=== PATIENT | male | born 1995 | race Caucasian/White ===

== ENCOUNTER 2017-04-29 15:50 | Emergency (ER) | payer OTHER ==
--- NOTE | 2017-04-29 17:32 | RAD ---
INDICATION: Left testicular pain COMPARISON: None TECHNIQUE: Duplex interrogation of the scrotum was performed. FINDINGS: Testicles: The testicles are Normal in size and echogenicity. There is no evidence of testicular mass. There is symmetric flow on Doppler interrogation. There is no evidence of torsion.. The right testis measures 4.5 x 2.2 x 3.1 cm and the left 4.5 a 2.0 x 3.0 cm. There is symmetric flow on Doppler interrogation. Epididymides: There is no evidence of an epididymal mass. The epididymides are normal in size. There is symmetric flow on Doppler interrogation. The right epididymal head measures 0.8 x 1.1 cm and the left 0.9 x 0.9 cm. Hydroceles: None. Varicoceles: None. Other: There are small inguinal lymph nodes with normal short axis measurements. No demonstrable inguinal hernia is seen. IMPRESSION: NO EVIDENCE OF TESTICULAR MASS OR TORSION
[2017-04-29 17:45] LABS: Urine Appearance Clear; Urine Blood Negative (Negative); Urine Color Yellow; Urine Ketones Negative (Negative); Urine Protein Negative (Negative); Urine Urobilinogen Negative (Negative)
--- NOTE | 2017-04-29 19:16 | ED ---
Garret Blakely Angela, scribed for Tonny Jernigan MD on 04/29/17 at 1658 . GI/ HPI - HPI Summary HPI Summary: This pt is a 21 y/o male presenting to [facility] c/o left testicular pain x6 days. Pt reports his pain began as left groin pain. He notes his pain has been worsening and now has left testicular pain. His pain is aggravated with movement and ambulation. Today, he states he had burning sensation after urination. Denies hematuria, nausea, vomiting, abd pain, fever. He notes he noticed right lower back pain after lifting weights today. Pt reports he got a text message today that his partner got tested for STDs 2 weeks ago. Pt is concerned for STDs. He denies hx of STDs. - History of Current Complaint Chief Complaint: EDGeneral Time Seen by Provider: 04/29/17 16:53 Stated Complaint: POSS UTI Hx Obtained From: Patient Onset/Duration: Started Days Ago, Still Present Timing: Lasting Days Current Severity: Moderate Pain Intensity: 6 Additional Locations for Males: Testicles - left Associated Signs and Symptoms: Positive: Back Pain - right lower, Dysuria - burning after urination. Negative: Nausea, Vomiting, Fever, Hematuria Aggravating Factor(s): Movement, Walking/Exertion Alleviating Factor(s): Rest - Allergy/Home Medications Allergies/Adverse Reactions: Allergies Allergy/AdvReac Type Severity Reaction Status Date / Time No Known Allergies Allergy Verified 04/29/17 16:11 PMH/Surg Hx/FS Hx/Imm Hx Endocrine/Hematology History: Denies: Hx Diabetes Cardiovascular History: Denies: Hx Hypertension Respiratory History: Reports: Hx Asthma Infectious Disease History: No Infectious Disease History: Denies: Traveled Outside the [place] in Last 30 Days - Family History Known Family History: Positive: None - Social History Alcohol Use: Weekly Substance Use Type: Reports: None Smoking Status (MU): Never Smoked Tobacco Review of Systems Negative: Fever Eyes: Negative ENT: Negative Negative: Abdominal Pain, Vomiting, Nausea Positive: dysuria, pain - left testicular pain. Negative: hematuria Musculoskeletal: Other - right lower back pain All Other Systems Reviewed And Are Negative: Yes Physical Exam - Summary Physical Exam Summary: General: well-appearing, no pain distress Skin: warm, color reflects adequate perfusion, dry Head: normal Eyes: EOMI, PIPER ENT: normal Neck: supple, nontender Respiratory: CTA, breath sounds present Cardiovascular: RRR Abdomen: soft, nontender Bowel: present Musculoskeletal: normal, strength/ROM intact Neurological: normal, sensory/motor intact, A&O x3 Psychological: affect/mood appropriate Triage Information Reviewed: Yes Vital Signs On Initial Exam: Initial Vitals Temp Pulse Resp BP Pulse Ox 98.3 F 79 18 136/54 99 04/29/17 16:07 04/29/17 16:07 04/29/17 16:07 04/29/17 16:07 04/29/17 16:07 Vital Signs Reviewed: Yes Diagnostics - Vital Signs Vital Signs Temp Pulse Resp BP Pulse Ox 04/29/17 16:07 98.3 F 79 18 136/54 99 - Laboratory Lab Results: Lab Results 04/29/17 Range/Units 17:30 Urine Color Yellow Urine Appearance Clear Urine pH 6.0 (5-9) Ur Specific [place] 1.030 (1.010-1.030) Urine Protein Negative (Negative) Urine Ketones Negative (Negative) Urine Blood Negative (Negative) Urine Nitrate Negative (Negative) Urine Bilirubin Negative (Negative) Urine Urobilinogen Negative (Negative) Ur Leukocyte Esterase Negative (Negative) Urine Glucose Negative (Negative) Lab Statement: Any lab studies that have been ordered have been reviewed, and results considered in the medical decision making process. - Ultrasound No standard instances Ultrasound Interpretation: No Acute Changes - Testicular US IMPRESSION: No evidence of testicular mass or torsion. Dr. Jernigan has reviewed this radiology report. Ultrasound Interpretation Completed By: Radiologist GIGU Course/Dx - Course Course Of Treatment: Testicular US is negative for testicular mass or torsion. Medications reviewed. Allergies noted. DISCUSSED RESULTS WITH PATIENT. GONORRHEA/CHLAMYDIA COULD NOT BE RUN UNTIL TOMORROW, 04/30/17. DISCUSSED EMPIRIC TREATMENT WITH ROCHEPHIN AND AZITHROMYCIN; PATIENT DECLINED, WISHES TO WAIT FOR RESULTS TO DETERMINE TREATMENT. F/U [facility]; RETURN TO ED IF WORSE. - Diagnoses Provider Diagnoses: Testicular/scrotal pain Discharge - Discharge Plan Condition: Stable Disposition: HOME Patient Education Materials: Testicle Pain (ED), Scrotal Pain (ED) Referrals: [facility] @ [facility] [Outside] Additional Instructions: Follow up with [facility]. Your Gonorrhea and Chlamydia results will be available tomorrow, 04/30/17. If either of those are positive, you will need to be treated. You can be treated at [facility] or the Emergency Department. RETURN TO THE EMERGENCY DEPARTMENT FOR ANY WORSENING OF YOUR CONDITION OR QUESTIONS OR CONCERNS. The documentation as recorded by the Garret nloasco Angela accurately reflects the service I personally performed and the decisions made by me, Tonny Jernigan MD.
[2017-04-29 19:44] VITALS: BP 144/59
== END 2017-04-29 19:44 | disposition home or self-care (01) ==
LOC: ED 15:50
DX: N50.819 Testicular pain, unspecified (principal); N50.82 Scrotal pain; R30.0 Dysuria
CPT/HCPCS: 76870; 81003; 87491; 87591; 99282

== ENCOUNTER 2017-11-03 02:32 | Emergency (ER) | payer OTHER ==
--- NOTE | 2017-11-03 03:01 | ED ---
Adult Trauma - HPI Summary HPI Summary: This is scribe August Trinidad documenting for attending Dr. Aldo Boothe MD. This patient is a 22 year old M presenting to [facility] with a chief complaint of left side CP accompanied by left pelvic pain since just [employer]. Pt was on a roof and slipped on some grease. Pt reports he fell 8-10 feet and landed on his left side. The patient rates the pain 6/10 in severity. Symptoms alleviated by Tylenol. Patient denies head injury. Pt took two Tylenol [employer]. 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 I, Dr. Boothe, personally performed the services described in this documentation as scribed in my presence and it is both accurate and complete. - History of Current Complaint Chief Complaint: EDFlankPain Stated Complaint: FELL OFF ROOF Time Seen by Provider: 11/03/17 02:53 Hx Obtained From: Patient Mechanism of Injury: Fall - roof Loss of Consciousness: no loss of consciousness Onset/Duration: Started Minutes Ago Onset of Pain: Immediate Onset Severity: Moderate Current Severity: Moderate Pain Intensity: 5 Pain Scale Used: 0-10 Numeric Location: Chest, Abdomen/Pelvis - Allergy/Home Medications Allergies/Adverse Reactions: Allergies Allergy/AdvReac Type Severity Reaction Status Date / Time No Known Allergies Allergy Verified 04/29/17 16:11 Home Medications: Home Medications L.acidoph,Paracasei, B.lactis [Probiotic] 1 each PO DAILY 11/03/17 [History Confirmed 11/03/17] Multivitamin [One Daily] 1 each PO DAILY 11/03/17 [History Confirmed 11/03/17] PMH/Surg Hx/FS Hx/Imm Hx Endocrine/Hematology History: Denies: Hx Diabetes Cardiovascular History: Denies: Hx Hypertension Respiratory History: Reports: Hx Asthma - Immunization History Date of Tetanus Vaccine: utd Date of Influenza Vaccine: unk Infectious Disease History: No Infectious Disease History: Denies: Traveled Outside the [place] in Last 30 Days - Family History Known Family History: Positive: None - Social History Alcohol Use: Weekly Substance Use Type: Reports: None Smoking Status (MU): Never Smoked Tobacco Review of Systems Negative: Fever Positive: Chest Pain - left side of chest Positive: Other - left pelvic pain. Negative: Decreased ROM Negative: Headache, Slurred Speech All Other Systems Reviewed And Are Negative: Yes Physical Exam - Summary Physical Exam Summary: Appearance: Well-appearing, Well-nourished, lying in bed comfortably. No external signs of trauma, no bruising. Skin: Warm, dry, no obvious rash Eyes: sclera anicteric, no conjunctival pallor ENT: mucous membranes moist, pharynx appears normal Neck: Supple, nontender Chest: no focal tenderness, no bony tenderness over ribs Respiratory: Clear to auscultation, no signs of respiratory distress. Good aeration. Cardiovascular: Normal S1, S2. No murmurs. Normal distal pulses in tibial and radial bilaterally. Abdomen: Soft, nontender, normal active bowel sounds present Musculoskeletal: Strength/ROM Intact. Tenderness in the left side of the pelvis. Neurological: A&Ox3, awake and alert, mentation is normal, speech is fluent and appropriate Psychiatric: affect is normal, does not appear anxious or depressed Triage Information Reviewed: Yes Vital Signs On Initial Exam: Initial Vitals Temp Pulse Resp BP Pulse Ox 98.0 F 78 15 134/67 98 11/03/17 02:34 11/03/17 02:34 11/03/17 02:34 11/03/17 02:34 11/03/17 02:34 Vital Signs Reviewed: Yes Diagnostics - Vital Signs Vital Signs Temp Pulse Resp BP Pulse Ox 11/03/17 02:34 98.0 F 78 15 134/67 98 - Laboratory Lab Statement: Any lab studies that have been ordered have been reviewed, and results considered in the medical decision making process. - Radiology Hip/pelvis X Ray Radiology Interpretation Completed By: ED Physician - negative CXR Radiology Interpretation Completed By: ED Physician - negative Adult Trauma Course/Dx - Diagnoses Provider Diagnoses: Contusion, hip, Rib contusion Discharge - Sign-Out/Discharge Documenting (check all that apply): Patient Departure - discharge - Discharge Plan Condition: Good Disposition: HOME Patient Education Materials: Hip Contusion (ED), Rib Contusion (ED) Referrals: [facility] [Primary Care Provider] - If Needed - Attestation Statements Document Initiated by Scribe: Yes Documenting Scribe: August Trinidad Provider For Whom Scribe is Documenting (Include Credential): Aldo Boothe MD Scribe Attestation: August Blakely, vaniaed for Aldo Boothe MD on 11/03/17 at 0334.
[2017-11-03 03:36] VITALS: BP 144/68
--- NOTE | 2017-11-03 09:38 | RAD ---
INDICATION: Left-sided chest pain after a fall COMPARISON: None TECHNIQUE: PA and lateral views of the chest were obtained. FINDINGS: The heart and mediastinum are normal in size and contour. The lungs are grossly clear. There is no evidence of large pleural effusion. Visualized bones are normal for the patient's age. There is no radiographic evidence of free air beneath the diaphragm IMPRESSION: No radiographic evidence of acute cardiopulmonary disease. R0
--- NOTE | 2017-11-03 09:39 | RAD ---
INDICATION: Left-sided hip pain after a fall COMPARISON: None TECHNIQUE: 3 views of the left hip were obtained. FINDINGS: The visualized bones of the left hip are well-corticated and properly aligned. The joint spaces are normal. There is no radiographic evidence of acute fracture or dislocation. IMPRESSION: Normal radiograph of the left hip. If the patient's symptoms persist follow-up imaging is recommended.
== END 2017-11-03 03:35 | disposition home or self-care (01) ==
LOC: ED 02:32
DX: S20.212A Contusion of left front wall of thorax, initial encounter (principal); S70.02XA Contusion of left hip, initial encounter; W13.2XXA Fall from, out of or through roof, initial encounter; Y92.9 Unspecified place or not applicable
CPT/HCPCS: 71046; 99282

== ENCOUNTER 2018-06-18 13:10 | Emergency (ER) | payer OTHER ==
--- NOTE | 2018-06-18 13:46 | ED ---
Palpitations / Dysrhythmia - HPI Summary HPI Summary: Pt is a 22 y/o M presenting to the ED with a chief complaint of heart palpitations. The pt reports he took an allergy medication this morning, and after his exam he took a couple of hits of a THC pen and 40mg Vyvanse, and he is unsure if it was IR or ER. About 10-20 minutes later, he noted his heart feeling like it was beating out of his chest and was rapidly beating. He reported chest pain described as tightness and difficulty breathing. He also notes he took 10mg Adderall last night, and denies any other sx or drug use. He denies any hx of HTN, DM, or HLD. - History of Current Complaint Chief Complaint: EDDysrhythmPalp Time Seen by Provider: 06/18/18 13:26 Hx Obtained From: Patient Onset/Duration: Sudden Onset, Lasting Minutes, Resolved Severity Initially: Moderate Severity Currently: Mild Character: Fast, Pounding Aggravating: Medication Alleviating: Nothing Associated Signs & Symptoms: Chest Pain, Shortness of Breath - Allergy/Home Medications Allergies/Adverse Reactions: Allergies Allergy/AdvReac Type Severity Reaction Status Date / Time No Known Allergies Allergy Verified 04/29/17 16:11 Home Medications: Home Medications Albuterol HFA INHALER* [Ventolin HFA Inhaler*] 1 puff INH Q6H PRN 06/18/18 [ History Confirmed 06/18/18] PMH/Surg Hx/FS Hx/Imm Hx Previously Healthy: Yes Endocrine/Hematology History: Denies: Hx Diabetes Cardiovascular History: Denies: Hx Hypertension Respiratory History: Reports: Hx Asthma - Immunization History Date of Tetanus Vaccine: utd Date of Influenza Vaccine: unk Infectious Disease History: No Infectious Disease History: Denies: Traveled Outside the [place] in Last 30 Days - Family History Known Family History: Negative: Diabetes - Social History Occupation: Student Alcohol Use: Weekly Hx Substance Use: Yes Substance Use Type: Reports: Marijuana, Prescribed Substance Use Comment - Amount & Last Used: adderallnapolenoanse Hx Tobacco Use: No Smoking Status (MU): Never Smoked Tobacco Review of Systems Positive: Palpitations, Chest Pain Positive: Shortness Of Breath All Other Systems Reviewed And Are Negative: Yes Physical Exam - Summary Physical Exam Summary: GENERAL: Patient is a well-developed and nourished male who is lying comfortable in the stretcher. Patient is not in any acute respiratory distress. HEAD AND FACE: Normocephalic EYES: PERRLA, EOMI x 2. EARS: Hearing grossly intact. MOUTH: Oropharynx within normal limits. NECK: Supple, trachea is midline, no adenopathy, no JVD, no carotid bruit. CHEST: Symmetric, no tenderness at palpation LUNGS: Clear to auscultation bilaterally. No wheezing or crackles. CVS: Regular rate and rhythm, S1 and S2 present, no murmurs or gallops appreciated. ABDOMEN: Soft, non-tender. Bowel sounds are normal. No abnormal abdominal pulsations. EXTREMITIES: Full ROM in all major joints, no edema, no cyanosis or clubbing. NEURO: Alert and oriented x 3. No acute neurological deficits. Speech is normal and follows commands. SKIN: Dry and warm Triage Information Reviewed: Yes Vital Signs On Initial Exam: Initial Vitals Temp Pulse Resp BP Pulse Ox 98.9 F 120 18 150/88 98 06/18/18 13:12 06/18/18 13:12 06/18/18 13:12 06/18/18 13:12 06/18/18 13:12 Vital Signs Reviewed: Yes Diagnostics - Vital Signs Vital Signs Temp Pulse Resp BP Pulse Ox 06/18/18 13:16 150/88 06/18/18 13:12 98.9 F 120 18 150/88 98 - Laboratory Result Diagrams: 06/18/18 14:01 06/18/18 14:01 Lab Statement: Any lab studies that have been ordered have been reviewed, and results considered in the medical decision making process. - Radiology CXR Radiology Interpretation Completed By: Radiologist Summary of Radiographic Findings: No evidence for acute disease. ED physician has reviewed this report. - EKG 1353 Cardiac Rate: Tachycardia - 115bpm EKG Rhythm: Sinus Tachycardia ST Segment: Normal Ectopy: None Summary of EKG Findings: EKG at 1353 shows sinus tachycardia at 115bpm with L axis deviation and benign early repolarization. Re-Evaluation - Re-Evaluation 1st re-eval Re-Evaluation Time: 15:54 Change: Unchanged Comment: Pt reports the fluttering has not stopped, and that it feels like after you work out. His hypertension was also noted and his troponin will be repeated. Course/Dx - Course Course Of Treatment: Pt is a 22 y/o M presenting to the ED with a chief complaint of heart palpitations d/t taking multiple medications today. He reports he took 10mg Adderall last night, an allergy medication this morning, 40mg Vyvanse after his final exam today, as well as hits of a THC pen. About 10- 20 minutes after consuming the Vyvanse, his heart started pounding and was very fast. Presently, his HR is coming down and does not feel as heavy anymore. Physical exam is unremarkable. JAVIER Paul, spoke to poison control who recommended bicarb if the pt's QRS complex is widened. EKG at 1353 shows sinus tachycardia at 115bpm with L axis deviation and benign early repolarization. His INR is 1.10 and his APTT is 25.2. All other labwork is WNL. CXR shows no evidence for acute disease. As of 1553, the pt reports the fluttering has not stopped, and that it feels like after you work out. His hypertension was also noted and his troponin will be repeated. Both of the pt's troponin tests were negative, and we will be sending him home with a dx of palpitations. He is stable and agreeable with this plan. - Diagnoses Provider Diagnoses: Palpitations Discharge - Sign-Out/Discharge Documenting (check all that apply): Patient Departure Patient Received Moderate/Deep Sedation with Procedure: No - Discharge Plan Condition: Stable Disposition: HOME Forms: *School Release Referrals: [facility] @ [Outside] Additional Instructions: Please follow up with [facility] at within the next 1-3 days. Return to the emergency department with any new or worsening symptoms. - Billing Disposition and Condition Condition: STABLE Disposition: Home - Attestation Statements Document Initiated by Scribe: Yes Documenting Scribe: Dana Cormier Provider For Whom Avani is Documenting (Include Credential): Elieser Inman MD. Scribe Attestation: Dana Blakely scribed for Elieser Inman MD. on 06/19/18 at 1122. Scribe Documentation Reviewed: Yes Provider Attestation: The documentation as recorded by the monicaibeDana accurately reflects the service I personally performed and the decisions made by Yousuf rico MD. Status of Scribe Document: Viewed Consult Consult: [id number] Dora Paul RN, spoke with poison control, who recommended giving bicarb only if the patient's QRS complex becomes widened.
[2018-06-18] MEDS ORDERED: NS 0.9% 1000 ML** 1,000 ML IV ONE (13:48)
[2018-06-18 14:09] LABS: ABS Lymphocytes 0.8 10^3/ul (1.0-4.8); ABS Monocytes 0.4 10^3/ul (0-0.8); ABS Neutrophils 5.2 10^3/ul (1.5-7.7); Eosinophil % 0.4 %; Hematocrit 42 % (42-52); Hemoglobin 14.6 g/dL (14.0-18.0); Lymphocyte % 12.6 %; Mean Corpuscular HGB Conc 35 g/dL (31-36); Mean Corpuscular Hemoglobin 31 pg (27-31); Mean Corpuscular Volume 90 fL (80-94); Mean Platelet Volume 10.1 fL (7.4-10.4); Nucleated Red Blood Cells % 0.1; Platelet Count 195 10^3/uL (150-450); Red Blood Count 4.68 10^6 /uL (4.18-5.48); Red Cell Distribution Width 12 % (10.5-15); White Blood Count 6.4 10^3/uL (3.5-10.8)
[2018-06-18 14:18] LABS: Activated Partial Thrombo Time 25.2 seconds (26.0-36.3)
[2018-06-18 14:30] LABS: CKMB ng/mL 2.1 ng/mL (0.6-6.3)
[2018-06-18 14:32] LABS: Albumin 4.9 g/dL (3.2-5.2); Albumin/Globulin Ratio 1.8 (1-3); BUN/Creatinine Ratio 14.6 (8-20); EGFR African American 111.4 (>60); EGFR Non-African American 92.1 (>60); Globulin 2.8 g/dL (2-4); Total Bilirubin 0.3 mg/dL (0.2-1.0); Total Protein 7.7 g/dL (6.4-8.9)
[2018-06-18 14:50] LABS: Urine Appearance Clear; Urine Bilirubin Negative (Negative); Urine Blood Negative (Negative); Urine Color Straw; Urine Glucose Negative (Negative); Urine Ketones Negative (Negative); Urine Nitrite Negative (Negative); Urine Protein Negative (Negative); Urine Specific Gravity 1.002 (1.010-1.030); Urine Urobilinogen Negative (Negative)
[2018-06-18 15:07] LABS: T4, Total 6.3 mcg/dL (6.09-12.23)
[2018-06-18 15:11] LABS: TSH (Thyroid Stimulating Horm) 1.63 mcIU/mL (0.34-5.60)
[2018-06-18 15:33] LABS: Potassium 3.9 mmol/L (3.5-5.0)
[2018-06-18 18:11] VITALS: BP 145/78
== END 2018-06-18 18:10 | disposition home or self-care (01) ==
LOC: ED 13:10
DX: R00.2 Palpitations (principal); R00.0 Tachycardia, unspecified; J45.909 Unspecified asthma, uncomplicated
CPT/HCPCS: 36415; 71045; 80053; 81003; 82553; 83605; 83735; 84436; 84443; 84484; 85025; 85379; 85610; 85730; 93005; 96360; 96361; 99283